=== PATIENT | male | born 1995 | race Caucasian/White ===

== ENCOUNTER 2017-03-25 13:11 | Emergency (ER) | payer OTHER ==
--- NOTE | 2017-03-26 08:10 | ER ---
DATE SEEN: 03/25/2017 TIME: The patient was seen at 1442 hours. HISTORY OF PRESENT ILLNESS: This pleasant young man comes in with history of sore throat, cough, and feeling sick since 05/22/2016. He denies headache, neck stiffness, vomiting or nausea, but he has had some diarrhea x2, on March 24 and March 25. He has a slight tenderness of right upper posterior earlobe, it has been there for several weeks. The patient is a nonsmoker. No diabetes, heart disease, or high blood pressure. Not taking any medicines. REVIEW OF SYSTEMS: Otherwise negative, except for noted above. PHYSICAL EXAMINATION: VITAL SIGNS: Blood pressure 136/78, heart rate 94 and regular, respirations 18, oxygen saturation 99%, and temperature is 37.1 degrees centigrade. Weight is 61.23 kg. BMI is 20.4 kg/m2. GENERAL: Pleasant, asthenic, bearded fellow, is accompanied by another friend. HEENT: PERRLA intact. Pharynx without abnormality. Minimal pharyngeal erythema. Minimal cervical adenopathy. Has a tender node in the right inferior-posterior lobe of his ear. No erythema and no redness noted. NECK: Supple. LUNGS: Clear without rales, rhonchi, or wheezes. HEART: S1, S2. No irregular rate or rhythm. No sinus tachycardia. ABDOMEN: Soft. No guarding. No abdominal discomfort. EXTREMITIES: Without abnormality. Pulses normal in upper and lower extremities. LABORATORY FINDINGS: Quick strep and influenza A and B are all negative. ASSESSMENT: Viremia. PLAN: Use Tylenol or ibuprofen as needed. Follow up with a doctor in a week to 10 days if not improved. Otherwise, as needed. /[id number] YANELIS/ADAM AIKEN
== END 2017-03-25 15:45 | disposition home or self-care (01) ==
LOC: FB.ED 13:11
DX: B34.9 Viral infection, unspecified (principal)
CPT/HCPCS: 87081; 87430; 87804; 99283